=== PATIENT | female | born 1965 | race Caucasian/White ===

== ENCOUNTER 2025-08-13 19:06 | Inpatient (IN) | payer MEDICAID, OTHER ==
[~2025-08-13] VITALS: Ht 170.2 cm; Wt 81.6 kg
[2025-08-13 20:06] LABS: PLATELET COUNT (AUTO) 341 K/uL (150-450); RED BLOOD CELL COUNT(AUTO) 4.58 MIL/uL (4.0-5.2); RED CELL DISTRIBUTION WIDTH 15.5 % (11.5-15.0); WHITE BLOOD COUNT (AUTO) 9.5 K/uL (4.3-11.0)
[2025-08-13 20:23] LABS: CALCIUM, SERUM 8.9 mg/dL (8.5-10.1); CREATININE 1.0 mg/dL (0.6-1.3); SODIUM SERUM 143 mmol/L (136-145); UREA NITROGEN, BLOOD 16 mg/dL (7-18)
[2025-08-13 20:26] LABS: APPEARANCE,URINE CLEAR (CLEAR); BLOOD, URINE NEGATIVE Ery/uL (NEGATIVE); LEUKOCYTE ESTERASE ,URINE NEGATIVE (NEGATIVE); NITRITE, URINE NEGATIVE (NEGATIVE); UGLUCOSE NEGATIVE (NEGATIVE)
[2025-08-13 20:30] LABS: ALCOHOL, BLOOD < 3 mg/dL (0-10); ASPARTATE AMINOTRANSFERASE 15 U/L (15-37); TOTAL PROTEIN, SERUM 7.6 g/dL (6.4-8.2)
[2025-08-13] MEDS ORDERED: LOSA50TA39 PO (20:32)
[2025-08-13] MEDS ORDERED: AMLO-213 PO (20:32)
[2025-08-13] MEDS ORDERED: LORA-259 PO (20:32)
[2025-08-13] MEDS ORDERED: BUPR150T5 PO (20:32)
[2025-08-13] MEDS ORDERED: ALBU18HF2 INH (20:32)
[2025-08-13] MEDS ORDERED: ATOR80TA PO (20:32)
[2025-08-13] MEDS ORDERED: POLY15DR31 EACHEYE (20:32)
[2025-08-13 20:34] LABS: AMPHETAMINE, URINE NEGATIVE (NEGATIVE); BARBITURATE, URINE NEGATIVE (NEGATIVE); BENZODIAZEPINE, URINE NEGATIVE (NEGATIVE); CANNABINOID, URINE NEGATIVE (NEGATIVE); COCCAINE, URINE NEGATIVE (NEGATIVE); OPIATE, URINE NEGATIVE (NEGATIVE)
[2025-08-13] MEDS ORDERED: OLANZAPINE 10 MG VIAL IM ONE (21:31)
[2025-08-13] MEDS: OLANZAPINE 10 MG VIAL IM ONE (21:32)
[2025-08-13] MEDS ORDERED: MAG HYDROX/AL HYDROX/SIMETH 30 ML UDC PO PRN (22:30)
[2025-08-13] MEDS ORDERED: Z GUARD REMEDY 4 OZ OINT TP PRN (22:30)
[2025-08-13] MEDS ORDERED: TEMAZEPAM 7.5 MG CAPSULE PO PRN (22:30)
[2025-08-13] MEDS ORDERED: ACETAMINOPHEN 325 MG TABLET PO PRN (22:30)
[2025-08-13] MEDS ORDERED: MAGNESIUM HYDROXIDE 30 ML UDC PO PRN (22:30)
[2025-08-13] MEDS ORDERED: HYDR-4209 PO (22:33)
[2025-08-13] MEDS: BLOOD SUGAR DIAGNOSTIC 1 EACH STRIP IN ONE (22:37)
[2025-08-13 23:21] VITALS: BP 130/74; TEMP 98; O2SAT 98
[2025-08-13] MEDS ORDERED: ARTIFICIAL TEARS 15 ML BOTTLE EACHEYE PRN (23:45)
[2025-08-14] MEDS: HYDROCODONE/APAP 5/325MG TABLET PO PRN (02:28)
[2025-08-14 05:23] VITALS: BP 147/74; TEMP 97.9; O2SAT 95
[2025-08-14 08:00] VITALS: BP 130/68; TEMP 97.9; O2SAT 96
[2025-08-14 08:24] LABS: LDL 99 mg/dL (0-99)
[2025-08-14] MEDS: AMLODIPINE BESYLATE 10 MG TABLET PO SCH (08:39)
[2025-08-14] MEDS: LOSARTAN POTASSIUM 50 MG TABLET PO SCH (08:39)
[2025-08-14] MEDS: LORAZEPAM 1 MG TABLET PO PRN ×2 (09:33→13:23)
[2025-08-14] MEDS ORDERED: buPROPion SR 150 MG TABLET.ER PO SCH (11:30)
[2025-08-14] MEDS: OLANZAPINE 2.5 MG TABLET PO SCH (12:00)
[2025-08-14] MEDS: DIVALPROEX SODIUM 250 MG TABLET.DR PO SCH (12:11)
[2025-08-14 16:00] VITALS: BP 107/65; TEMP 98.8; O2SAT 95
[2025-08-14] MEDS: HALOPERIDOL LACTATE INJ 5 MG/ML VIAL IM STA (16:56)
[2025-08-14] MEDS: LORAZEPAM INJ 2 MG/ML VIAL IM STA (16:57)
[2025-08-14 20:03] VITALS: BP 115/65; TEMP 98.6; O2SAT 95
[2025-08-14] MEDS: ATORVASTATIN 40 MG TABLET PO SCH (21:47)
[2025-08-14] MEDS: TEMAZEPAM 15 MG CAPSULE PO PRN (22:39)
[2025-08-15 08:00] VITALS: BP 142/74; TEMP 97.8; O2SAT 97
[2025-08-15] MEDS: LORAZEPAM INJ 2 MG/ML VIAL IV STA (12:43)
[2025-08-15] MEDS: HALOPERIDOL LACTATE INJ 5 MG/ML VIAL IM STA (12:44)
[2025-08-15 16:00] VITALS: BP 118/71; TEMP 98.4; O2SAT 95
[2025-08-15 16:28] LABS: PLATELET COUNT (AUTO) 347 K/uL (150-450); RED BLOOD CELL COUNT(AUTO) 4.83 MIL/uL (4.0-5.2); RED CELL DISTRIBUTION WIDTH 15.8 % (11.5-15.0); WHITE BLOOD COUNT (AUTO) 8.2 K/uL (4.3-11.0)
[2025-08-15 16:46] LABS: CALCIUM, SERUM 9.3 mg/dL (8.5-10.1); CREATININE 0.9 mg/dL (0.6-1.3); SODIUM SERUM 140.0 mmol/L (136-145); UREA NITROGEN, BLOOD 14.0 mg/dL (7-18)
[2025-08-15 20:37] VITALS: BP 111/89; TEMP 98; O2SAT 98
[2025-08-15] MEDS: OLANZAPINE 5 MG TABLET PO SCH (21:14)
[2025-08-16] MEDS: DIVALPROEX SODIUM 500 MG TABLET.DR PO SCH (08:33)
[2025-08-16 08:35] VITALS: BP 147/79; TEMP 98.2; O2SAT 96
[2025-08-16 15:27] VITALS: BP 120/79; TEMP 98.1; O2SAT 97
[2025-08-16] MEDS: BACLOFEN (10 MG) 10 MG TABLET PO PRN (17:33)
[2025-08-16 17:57] VITALS: O2SAT 95
[2025-08-16] MEDS: ALBUTEROL FS 2.5 MG/3 ML VIAL.NEB NEB PRN (17:57)
[2025-08-16 18:07] VITALS: O2SAT 100
[2025-08-16 20:03] VITALS: BP 106/69; TEMP 97.4; O2SAT 95
[2025-08-17 08:00] VITALS: BP 134/83; TEMP 98.1; O2SAT 98
[2025-08-17 16:00] VITALS: BP 118/77; TEMP 97.8; O2SAT 96
[2025-08-17 20:25] VITALS: BP 116/68; TEMP 97.7; O2SAT 96
[2025-08-18 08:00] VITALS: BP 142/82; TEMP 97.7; O2SAT 95
[2025-08-18 16:00] VITALS: BP 105/77; TEMP 97.8; O2SAT 97
[2025-08-18 21:17] VITALS: BP 145/78; TEMP 98.2; O2SAT 96
[2025-08-19 08:00] VITALS: BP 142/78; TEMP 97.5; O2SAT 95
[2025-08-19 08:38] VITALS: BP 142/78
== END 2025-08-19 12:45 | DRG 751 ==
LOC: ER 19:15 → GPS 21:33
PROVIDERS: ADMIT Psychiatry & Neurology Psychiatry; ATTEND Nurse Practitioner Acute Care
DX: F32.9 Major depressive disorder, single episode, unspecified (principal); I69.354 Hemiplegia and hemiparesis following cerebral infarction affecting left non-dominant side; I10 Essential (primary) hypertension; J44.9 Chronic obstructive pulmonary disease, unspecified; E66.9 Obesity, unspecified; E78.5 Hyperlipidemia, unspecified; F41.9 Anxiety disorder, unspecified; R73.9 Hyperglycemia, unspecified; Z68.31 Body mass index [BMI] 31.0-31.9, adult; Z11.52 Encounter for screening for COVID-19
CPT/HCPCS: 36415; 80048-TC; 80061-TC; 80076-TC; 80164-TC; 85025-TC; 94762-TC; 97110-TC; 97112-TC; 97530-TC; G0480; J1200; J1630; J2060; J3490